=== PATIENT | female | born 1970 | race Caucasian/White ===

== ENCOUNTER → 2016-02-27 | Outpatient (CLI) | payer BC ==
[~2016-02-27] MED LIST: ESCI1TAB9 PO; IBUP-1050 PO; LEVO125T8 PO
[2016-02-27 12:49] LABS: THYROID STIMULATING HORMONE 3.16 uIu/ml (0.300-4.500)
== END | disposition home or self-care (01) ==
LOC: C.LABBFT 08:46
PROVIDERS: ATTEND Internal Medicine
DX: E03.9 Hypothyroidism, unspecified (principal)

== ENCOUNTER → 2016-07-22 | Outpatient (CLI) | payer BC, OTHER ==
--- NOTE | 2016-07-23 13:14 | MAMMOGRAPHY REPORT ---
BILATERAL DIGITAL SCREENING MAMMOGRAM WITH CAD: 07/22/2016 CLINICAL HISTORY: Routine screening. Patient has no complaints. TECHNIQUE: Bilateral CC and MLO views of the breasts with and without implant displacement views were obtained. Current study was also evaluated with a Computer Aided Detection (CAD) system. COMPARISON: Comparison is made to exams dated: 12/20/2014 mammogram, 12/20/2014 ultrasound, 04/04/2014 ultrasound, 04/04/2014 mammogram, 03/24/2014 mammogram, and 01/19/2013 mammogram - [facility]. BREAST COMPOSITION: The tissue of both breasts is heterogeneously dense, which may obscure small mas ses. FINDINGS: Bilateral subpectoral saline implants are intact. A dominant circumscribed oval 2.7 cm mas s in the left upper outer quadrant is increased in size compared to the March 2014 mammograms, how ever, it was previously documented to represent a simple cyst on ultrasound. No new suspicious mass, architectural distortion or cluster of microcalcifications is seen bilaterally. IMPRESSION: ACR BI-RADS CATEGORY 1: NEGATIVE There is no mammographic evidence of malignancy. A 1 year screening mammogram is recommended. The pa tient will receive written notification of the results. Approximately 10% of breast cancers are not detected with mammography. A negative mammographic report should not delay biopsy if a clinically suggestive mass is present. Mehnaz Sibley M.D. ay/:07/22/2016 16:19:23 Sap Hana Architect: Liana JOHNSON)(Mandie), [facility] letter sent: Normal 1/2 BI-RADS Code: ACR BI-RADS Category 1: Negative
== END | disposition home or self-care (01) ==
LOC: C.MAMM 15:40
PROVIDERS: ATTEND Internal Medicine
DX: Z12.31 Encounter for screening mammogram for malignant neoplasm of breast (principal)

== ENCOUNTER → 2016-12-31 | Outpatient (CLI) | payer BC, OTHER ==
--- NOTE | 2016-12-31 15:21 | MAMMOGRAPHY REPORT ---
UNILATERAL LEFT DIGITAL DIAGNOSTIC MAMMOGRAM TOMOSYNTHESIS WITH CAD AND TARGETED LEFT ULTRASOUND: CLINICAL HISTORY: The patient reports a new palpable left breast lump. She only reports associated t enderness when the area is palpated. TECHNIQUE: Breast tomosynthesis in addition to standard 2D mammography was performed. Current study was also evaluated with a Computer Aided Detection (CAD) system. Left CC and MLO 2-D and tomosynthes is images were obtained. Tomosynthesis images were obtained of the implant displaced views only. COMPARISON: Comparison is made to exams dated: 07/22/2016 mammogram, 12/20/2014 mammogram, 12/20/2014 ul trasound, 04/04/2014 ultrasound, 04/04/2014 mammogram, and 03/24/2014 mammogram - [facility]. BREAST COMPOSITION: The tissue of the left breast is heterogeneously dense, which may obscure small masses. FINDINGS: A triangle marker conn the site of the palpable lump in the left upper outer quadrant. At the site of the palpable lump there is a circumscribed 3.0 cm mass, which does not appear significan tly changed compared to the July 2016 exam although has increased compared to the 2014 exam. The rem ainder of the left breast demonstrates no suspicious masses, calcifications, or areas of architectura l distortion. A subpectoral saline implant is intact. Targeted ultrasound was performed of the area of the palpable lump pointed out by the patient, in the left breast at 1:00 approximately 6 cm from the nipple. At the site of the palpable lump there is a n oval circumscribed anechoic 2.4 x 1.8 x 2.8 cm mass. This corresponds with the mammographic mass a nd is consistent with a benign simple cyst. IMPRESSION: ACR BI-RADS CATEGORY 2: BENIGN, TARGETED ULTRASOUND ACR BI-RADS CATEGORY 2: BENIGN The palpable left 1:00 breast lump corresponds with a benign 2.8 cm simple cyst. There is no mammogra phic or targeted sonographic evidence of malignancy. Recommend clinical follow-up, and recommend rou polly bilateral screening mammograms which are due July 2017. The patient has been verbally notified of the results. Approximately 10% of breast cancers are not detected with mammography. A negative mammographic report should not delay biopsy if a clinically suggestive mass is present. Carmen guardado/:12/31/2016 13:17:06 Oyster Floater: Liana JOHNSON)(M), [facility] letter sent: Normal 1/2 BI-RADS Code: ACR BI-RADS Category 2: Benign Ultrasound BI-RADS: ACR BI-RADS Category 2: Benign
== END | disposition home or self-care (01) ==
LOC: C.MAMM 12:37
PROVIDERS: ATTEND Physician Assistant
DX: N63.0 Unspecified lump in unspecified breast (principal); Z98.82 Breast implant status

== ENCOUNTER 2017-03-30 21:37 | Observation (INO) | payer BC, OTHER ==
[~2017-03-30] VITALS: Ht 175.3 cm; Wt 86.3 kg
[2017-03-30] MEDS ORDERED: ONDANSETRON INJ 2 MG/ML 2 ML VIAL IV STA (21:57)
[2017-03-30] MEDS ORDERED: HYDROmorphone INJ 1 MG/ML SYR IV STA (21:57)
[2017-03-30] MEDS ORDERED: KETOROLAC TROMETHAMINE 30 MG/ML VIAL IV STA (21:57)
[2017-03-30] MEDS ORDERED: SODIUM CHLORIDE 0.9% 1000ML 1,000 ML IV STA (21:58)
--- NOTE | 2017-03-30 22:01 | EMERGENCY ROOM VISIT NOTE ---
History Report prepared by Rohit: Bao Mcneal Under the Supervision of: Dr. Zaire Menon M.D. First contact with patient: 21:47 Chief Complaint: ABDOMINAL PAIN Stated Complaint: EXTREMEM ABDOMINAL PAIN History of Present Illness The patient is a 46 year old female who presents to the Emergency Room with complaints of persistent right-sided abdominal pain that started prior to arrival this evening. She says that she was just sitting down watching TV when the pain came on. She describes the pain as sharp, and goes from her right side across to her belly button. She adds that she has been vomiting tonight. The patient denies any back pain. She says that she still has her gallbladder. The patient denies any chance of . Source of History: patient Onset: [employer] this evening Position: abdomen (right) Quality: sharp Timing: other (persistent) Associated Symptoms: + vomiting, No back pain Review of Systems See HPI for pertinent positives & negatives. A total of 10 systems reviewed and were otherwise negative. Past Medical & Surgical Medical Problems: (1) No chronic problems Family History No pertinent family history Social History Smoking Status: Never Smoker Alcohol Use: none Drug Use: none Marital Status: Housing Status: lives with family Occupation Status: employed Current/Historical Medications Scheduled Biotin (Biotin), 1 CAN PO DAILY Cholecalciferol (Vitamin D3), 1 TAB PO DAILY Escitalopram Oxalate (Escitalopram Oxalate), 30 MG PO DAILY Fish Oil (Fowler-3), 1 CAP PO DAILY Levothyroxine Sodium (Synthroid), 25 MCG PO DAILY Levothyroxine Sodium (Synthroid), 200 MCG PO DAILY Multivitamin (Multivitamin), 1 TAB PO DAILY Allergies Coded Allergies: No Known Allergies (Verified , 03/30/17) Physical Exam Vital Signs Date Time Temp Pulse Resp B/P (MAP) Pulse Ox O2 Delivery O2 Flow Rate FiO2 03/30/17 23:47 81 16 105/67 93 Room Air 03/30/17 22:41 77 03/30/17 22:34 80 16 125/63 93 Room Air 03/30/17 22:05 120/58 03/30/17 21:40 36.6 106 18 93/33 96 Room Air Physical Exam GENERAL: Patient is a well-nourished 46 year old female. HEAD: Normocephalic atraumatic EYES: Ocular movements intact pupils equal and react to light OROPHARYNX mucous membranes are moist no exudates present no erythema or edema present NECK: Supple no nuchal rigidity CHEST: Good equal expansion LUNGS: Clear and equal to auscultation CARDIAC: Normal S1 and S2 ABDOMEN: Soft, acutely tender in the right lower quadrant, no guarding BACK: No CVA tenderness EXTREMITIES: No pain upon palpation normal muscle strength in all groups no clubbing cyanosis or edema NEURO: Patient is following commands and answering questions appropriately. Alert and oriented x3 Cranial Nerves 2-12 grossly intact Medical Decision & Procedures ER Provider Diagnostic Interpretation: CT results as stated below per my review and radiologist interpretation: ABD/PELVIS WITHOUT FOR STONE HISTORY: 46 years-old Female Pt c/o Rt sided flank pain acute right-sided flank pain with concern for kidney stone. COMPARISON: None available TECHNIQUE: Multiple axial CT images of the abdomen and pelvis were obtained without contrast. A dose lowering technique was used consistent with the principals of JAMES. FINDINGS: Lung bases are clear. No pneumatosis or pneumoperitoneum identified. Imaged inferior cardiac chambers are unremarkable. Evaluation of the solid abdominal organs is limited without the use of contrast. 4 mm low attenuating lesion of the hepatic dome is too small to characterize however statistically would favor a benign etiology such as a hepatic cyst. No intrahepatic biliary ductal dilation. The spleen, pancreas, gallbladder and adrenal glands are within normal limits. Punctate bilateral nonobstructing renal calculi are noted. The ureters and urinary bladder are within normal limits. Uterus and left adnexum are unremarkable. Ovoid circumscribed cystic structure of the right adnexum, 2.2 cm suggests dominant follicle. Mild to moderate free pelvic fluid of the cul-de-sac. Aorta is normal in course and caliber. No bulky adenopathy identified. Small sliding-type hiatal hernia. No bowel obstruction. Mild colonic diverticulosis without CT evidence of acute diverticulitis. Appendix is mildly dilated at 8 mm demonstrates mild surrounding inflammatory stranding which tracks along the right pericolic gutter. Additionally, there is a punctate focus of increased attenuation in the mid appendiceal lumen, image 265 series 3 which may reflect a small appendicolith. It is no evidence of perforation or abscess at this time. Probable reactive ileus of the terminal ileum. Soft tissues are unremarkable. Bones appear intact. IMPRESSION: 1. Acute uncomplicated appendicitis without evidence of perforation or abscess. 2. No bowel obstruction. 3. Bilateral nonobstructing nephrolithiasis. 4. Mild to moderate free pelvic fluid is likely reactive. 5. 2.2 cm cystic lesion of the right adnexum suggests dominant ovarian follicle. The above report was generated using voice recognition software. It may contain grammatical, syntax or spelling errors. Electronically signed by: Miguel Eisenberg M.D. 03/30/2017 10:39 PM Dictated Date/Time: 03/30/2017 10:28 PM Laboratory Results 03/30/17 21:50 Red Blood Count 4.50, Mean Corpuscular Volume 89.8, Mean Corpuscular Hemoglobin 31.8, Mean Corpuscular Hemoglobin Concent 35.4, Mean Platelet Volume 9.2, Neutrophils (%) (Auto) 65.3, Lymphocytes (%) (Auto) 26.7, Monocytes (%) (Auto) 6.3, Eosinophils (%) (Auto) 1.0, Basophils (%) (Auto) 0.4, Neutrophils # (Auto) 8.74, Lymphocytes # (Auto) 3.58, Monocytes # (Auto) 0.85, Eosinophils # (Auto) 0.14, Basophils # (Auto) 0.05 03/30/17 21:50 Test 03/30/17 21:50 03/30/17 23:58 White Blood Count 13.40 K/uL (4.8-10.8) Red Blood Count 4.50 M/uL (4.2-5.4) Hemoglobin 14.3 g/dL (12.0-16.0) Hematocrit 40.4 % (37-47) Mean Corpuscular Volume 89.8 fL (80-100) Mean Corpuscular Hemoglobin 31.8 pg (25-34) Mean Corpuscular Hemoglobin Concent 35.4 g/dl (32-36) Platelet Count 234 K/uL (130-400) Mean Platelet Volume 9.2 fL (7.4-10.4) Neutrophils (%) (Auto) 65.3 % Lymphocytes (%) (Auto) 26.7 % Monocytes (%) (Auto) 6.3 % Eosinophils (%) (Auto) 1.0 % Basophils (%) (Auto) 0.4 % Neutrophils # (Auto) 8.74 K/uL (1.4-6.5) Lymphocytes # (Auto) 3.58 K/uL (1.2-3.4) Monocytes # (Auto) 0.85 K/uL (0.11-0.59) Eosinophils # (Auto) 0.14 K/uL (0-0.5) Basophils # (Auto) 0.05 K/uL (0-0.2) RDW Standard Deviation 40.9 fL (36.4-46.3) RDW Coefficient of Variation 12.6 % (11.5-14.5) Immature Granulocyte % (Auto) 0.3 % Immature Granulocyte # (Auto) 0.04 K/uL (0.00-0.02) Anion Gap 9.0 mmol/L (3-11) Estimated GFR () 98.1 Estimated GFR (Non- 84.6 BUN/Creatinine Ratio 15.2 (10-20) Calcium Level 9.4 mg/dl (8.5-10.1) Total Bilirubin 0.2 mg/dl (0.2-1) Direct Bilirubin < 0.1 mg/dl (0-0.2) Aspartate Amino Transf (AST/SGOT) 11 U/L (15-37) Alanine Aminotransferase (ALT/SGPT) 18 U/L (12-78) Alkaline Phosphatase 69 U/L (45-117) Total Protein 7.5 gm/dl (6.4-8.2) Albumin 3.7 gm/dl (3.4-5.0) Lipase 211 U/L (73-393) Urine Test NEG (NEG) Labs reviewed by ED physician. Medications Administered Medications (Trade) Dose Ordered Sig/Josephine Route Start Time Stop Time Status Last Admin Dose Admin Hydromorphone HCl (Dilaudid Inj) 1 mg NOW STAT IV 03/30/17 21:57 03/30/17 21:58 DC 03/30/17 22:04 1 MG Ondansetron HCl (Zofran Inj) 4 mg NOW STAT IV 03/30/17 21:57 03/30/17 21:58 DC 03/30/17 22:03 4 MG Ketorolac Tromethamine (Toradol Inj) 30 mg NOW STAT IV 03/30/17 21:57 03/30/17 21:58 DC 03/30/17 22:05 30 MG Sodium Chloride 1,000 ml @ 999 mls/hr Q1H1M STAT IV 03/30/17 21:58 03/30/17 22:58 DC 03/30/17 22:03 999 MLS/HR Cefoxitin Sodium (Mefoxin 2000mg/ 60 ml D5W) 2,000 mg NOW STAT IV 03/30/17 22:46 03/30/17 22:48 DC 03/30/17 23:22 2,000 MG ED Course 2152: Past medical records reviewed. The patient was evaluated in room C12A. A complete history and physical examination was performed. 2156: Ordered Toradol Inj 30 mg IV, Zofran Inj 4 mg IV, Dilaudid Inj 1 mg IV. 2157: Ordered NSS 1000 ml @ 999 mls/hr IV. 2246: Upon reexamination the patient is resting. I discussed results and treatment plan with the patient. She verbalizes agreement and understanding. The patient will be evaluated for further management by surgery. 2245: Ordered Mefoxin 2000 mg/60 ml D5W 2000 mg IV. 2248: I discussed the patient with Dr. Cristhian CRAVEN general surgery - he will evaluate the patient for further treatment. Medical Decision Differential diagnosis: Etiologies such as appendicitis, diverticulitis, PUD, biliary pathology, UTI, pancreatitis, obstruction, mesenteric ischemia, aortic pathology, infections, inflammatory bowel disease, renal colic, as well as others were entertained. This is a 38-year-old female who presents emergency department writhing around on the bed. Due to the nature the patient's pain she was immediately sent for CAT scan after an IV was obtained. The patient's CAT scan was concerning for acute appendicitis. She also has an elevation in her white blood count cell count. Patient was given Dilaudid as well as Toradol for the pain. She will be started on Mefoxin. I did discuss the case with the surgeon on-call. Patient family were in agreement with the treatment plan. Medication Reconcilliation Current Medication List: was personally reviewed by me Blood Pressure Screening Patient's blood pressure: Normal blood pressure Consults Time Called: 2246 Consulting Physician: Dr. Crishtian CRAVEN general surgery Returned Call: [phone] I discussed the patient with Dr. Cristhian CRAVEN general surgery - he will evaluate the patient for further treatment. Impression Primary Impression: Appendicitis, acute Scribe Attestation The scribe's documentation has been prepared under my direction and personally reviewed by me in its entirety. I confirm that the note above accurately reflects all work, treatment, procedures, and medical decision making performed by me. Departure Information Dispostion Being Evaluated By Surgeon Referrals Pacheco Sullivan M.D. (PCP) Patient Instructions My [facility] Problem Qualifiers Primary Impression: Appendicitis, acute Acute appendicitis type: with generalized peritonitis Qualified Codes: K35.2 - Acute appendicitis with generalized peritonitis
[2017-03-30 22:07] LABS: BASO % 0.4 %; BASO ABS # 0.05 K/uL (0-0.2); EOS ABS # 0.14 K/uL (0-0.5); HEMATOCRIT 40.4 % (37-47); HEMOGLOBIN 14.3 g/dL (12.0-16.0); IG# 0.04 K/uL (0.00-0.02); LYMPH % 26.7 %; LYMPH ABS # 3.58 K/uL (1.2-3.4); MEAN CELL VOLUME 89.8 fL (80-100); MEAN CORPUSCULAR HEMOGLOBIN 31.8 pg (25-34); MEAN CORPUSCULAR HGB CONC 35.4 g/dl (32-36); MEAN PLATELET VOLUME 9.2 fL (7.4-10.4); MONO % 6.3 %; MONO ABS # 0.85 K/uL (0.11-0.59); NEUT % 65.3 %; NEUT ABS # 8.74 K/uL (1.4-6.5); PLATELET COUNT 234 K/uL (130-400); RED CELL DISTRIBUTION WIDTH CV 12.6 % (11.5-14.5); RED CELL DISTRIBUTION WIDTH SD 40.9 fL (36.4-46.3)
[2017-03-30 22:23] LABS: ALBUMIN 3.7 gm/dl (3.4-5.0); ALT/SGPT 18 U/L (12-78); BLOOD UREA NITROGEN 12 mg/dl (7-18); CALCIUM 9.4 mg/dl (8.5-10.1); CARBON DIOXIDE 28 mmol/L (21-32); CREATININE 0.82 mg/dl (0.60-1.20); GLUCOSE 91 mg/dl (70-99); LIPASE 211 U/L (73-393); POTASSIUM 3.5 mmol/L (3.5-5.1); SODIUM 138 mmol/L (136-145)
[2017-03-30 22:26] LABS: ALKALINE PHOSPHATASE 69 U/L (45-117); AST/SGOT 11 U/L (15-37); TOTAL PROTEIN 7.5 gm/dl (6.4-8.2)
--- NOTE | 2017-03-30 22:41 | DIAGNOSTIC IMAGING REPORT ---
ABD/PELVIS WITHOUT FOR STONE HISTORY: 46 years-old Female Pt c/o Rt sided flank pain acute right-sided flank pain with concern for kidney stone. COMPARISON: None available TECHNIQUE: Multiple axial CT images of the abdomen and pelvis were obtained without contrast. A dose lowering technique was used consistent with the principals of JAMES. FINDINGS: Lung bases are clear. No pneumatosis or pneumoperitoneum identified. Imaged inferior cardiac chambers are unremarkable. Evaluation of the solid abdominal organs is limited without the use of contrast. 4 mm low attenuating lesion of the hepatic dome is too small to characterize however statistically would favor a benign etiology such as a hepatic cyst. No intrahepatic biliary ductal dilation. The spleen, pancreas, gallbladder and adrenal glands are within normal limits. Punctate bilateral nonobstructing renal calculi are noted. The ureters and urinary bladder are within normal limits. Uterus and left adnexum are unremarkable. Ovoid circumscribed cystic structure of the right adnexum, 2.2 cm suggests dominant follicle. Mild to moderate free pelvic fluid of the cul-de-sac. Aorta is normal in course and caliber. No bulky adenopathy identified. Small sliding-type hiatal hernia. No bowel obstruction. Mild colonic diverticulosis without CT evidence of acute diverticulitis. Appendix is mildly dilated at 8 mm demonstrates mild surrounding inflammatory stranding which tracks along the right pericolic gutter. Additionally, there is a punctate focus of increased attenuation in the mid appendiceal lumen, image 265 series 3 which may reflect a small appendicolith. It is no evidence of perforation or abscess at this time. Probable reactive ileus of the terminal ileum. Soft tissues are unremarkable. Bones appear intact. IMPRESSION: 1. Acute uncomplicated appendicitis without evidence of perforation or abscess. 2. No bowel obstruction. 3. Bilateral nonobstructing nephrolithiasis. 4. Mild to moderate free pelvic fluid is likely reactive. 5. 2.2 cm cystic lesion of the right adnexum suggests dominant ovarian follicle. The above report was generated using voice recognition software. It may contain grammatical, syntax or spelling errors. Electronically signed by: Miguel Eisenberg M.D. 03/30/2017 10:39 PM Dictated Date/Time: 03/30/2017 10:28 PM
[2017-03-30] MEDS ORDERED: CEFOXITIN 2000MG/60 ML D5W IV STA (22:46)
[2017-03-30] MEDS ORDERED: LXP/20 PO (23:06)
[2017-03-30] MEDS ORDERED: SYN200 PO (23:06)
[2017-03-30] MEDS ORDERED: LEVO25TA PO (23:06)
[2017-03-30] MEDS ORDERED: MULT-506 PO (23:07)
[2017-03-30] MEDS ORDERED: OMEG10007 PO (23:07)
[2017-03-30] MEDS ORDERED: BIOT1CAP8 PO (23:07)
[2017-03-30] MEDS ORDERED: CHOL1000 PO (23:07)
--- NOTE | 2017-03-30 23:35 | Surgery Consultation ---
Consultation Date of Consultation: Mar 30, 2017. Attending Physician: History of Present Illness The patient is a 46 year old female who presents to the Emergency Room with complaints of persistent right-sided abdominal pain that started prior to arrival this evening. She says that she was just sitting down watching TV when the pain came on. She describes the pain as sharp, and goes from her right side across to her belly button. She adds that she has been vomiting tonight. The patient denies any back pain. She says that she still has her gallbladder. The patient denies any chance of . I saw pt at ER, I reviewed pt's H/P with pt, pt is still have RLQ pain, with nausea and vomiting, pt denies fever, no diarrhea. Past Medical/Surgical History Medical Problems: (1) Appendicitis, acute Status: Acute Family History No pertinent family history Social History Smoking Status: Never Smoker Smokeless Tobacco Use: No Alcohol Use: occasionally Drug Use: none Marital Status: Housing Status: lives with family Occupation Status: employed Allergies Coded Allergies: No Known Allergies (Verified , 03/30/17) Home Medications Scheduled Biotin (Biotin), 1 CAN PO DAILY Cholecalciferol (Vitamin D3), 1 TAB PO DAILY Escitalopram Oxalate (Escitalopram Oxalate), 30 MG PO DAILY Fish Oil (Lynn-3), 1 CAP PO DAILY Levothyroxine Sodium (Synthroid), 25 MCG PO DAILY Levothyroxine Sodium (Synthroid), 200 MCG PO DAILY Multivitamin (Multivitamin), 1 TAB PO DAILY Review of Systems Constitutional: No fever, No chills, No sweats, No weight loss, No weakness, No fatigue, No problem reported Eyes: No worsening of vision, No eye pain, No redness, No discharge, No diplopia, No problem reported ENT: No hearing loss, No unusual epistaxis, No nasal symptoms, No sore throat, No tinnitus, No dental problems, No trouble swallowing, No problem reported Respiratory: No cough, No sputum, No wheezing, No shortness of breath, No dyspnea on exertion, No dyspnea at rest, No hemoptysis, No problem reported Cardiovascular: No chest pain, No orthopnea, No PND, No edema, No claudication , No palpitations, No problem reported Abdomen: + pain, + nausea, + vomiting Musculoskeletal: No joint pain, No muscle pain, No swelling, No calf pain, No problem reported Genitourinary - Female: No dysuria, No urinary frequency, No urinary urgency, No urinary incontinence, No urinary retention, No hematuria, No dysmenorrhea, No menorrhagia, No metrorrhagia, No rash, No vaginal bleeding, No vaginal discharge, No vaginal itching, No vulvodynia, No , No problem reported Neurologic: No memory loss, No paralysis, No weakness, No numbness/tingling, No vertigo, No balance problems, No problem reported Psychiatric: No depression symptoms, No anhedonism, No anxiety, No insomnia, No substance abuse, No problem reported Endocrine: No fatigue, No excessive thirst, No excessive urination, No problem reported Hematologic / Lymphatic: No abnormal bleeding/bruising, No clotting problems, No swollen lymph nodes, No night sweats, No problem reported Physical Exam Date Time Temp Pulse Resp B/P (MAP) Pulse Ox O2 Delivery O2 Flow Rate FiO2 03/30/17 22:41 77 03/30/17 22:34 80 16 125/63 93 Room Air 03/30/17 22:05 120/58 03/30/17 21:40 36.6 106 18 93/33 96 Room Air General Appearance: WD/WN, + mild distress Head: normocephalic Eyes: normal inspection ENT: normal ENT inspection Neck: supple, no JVD Respiratory/Chest: chest non-tender, lungs clear, normal breath sounds Cardiovascular: regular rate, rhythm, no edema, no gallop, no JVD, no murmur Abdomen/GI: normal bowel sounds, soft, no organomegaly, no pulsatile mass, normal rectal exam, + tenderness (at RLQ, no rebound pain) Extremities/Musculoskelatal: normal inspection, no calf tenderness, normal capillary refill Neurologic/Psych: no motor/sensory deficits, alert, normal mood/affect Skin: normal color, warm/dry, no rash Lymphatic: no adenopathy Laboratory Results Last 24 Hours Test 03/30/17 21:50 White Blood Count 13.40 K/uL Red Blood Count 4.50 M/uL Hemoglobin 14.3 g/dL Hematocrit 40.4 % Mean Corpuscular Volume 89.8 fL Mean Corpuscular Hemoglobin 31.8 pg Mean Corpuscular Hemoglobin Concent 35.4 g/dl Platelet Count 234 K/uL Mean Platelet Volume 9.2 fL Neutrophils (%) (Auto) 65.3 % Lymphocytes (%) (Auto) 26.7 % Monocytes (%) (Auto) 6.3 % Eosinophils (%) (Auto) 1.0 % Basophils (%) (Auto) 0.4 % Neutrophils # (Auto) 8.74 K/uL Lymphocytes # (Auto) 3.58 K/uL Monocytes # (Auto) 0.85 K/uL Eosinophils # (Auto) 0.14 K/uL Basophils # (Auto) 0.05 K/uL RDW Standard Deviation 40.9 fL RDW Coefficient of Variation 12.6 % Immature Granulocyte % (Auto) 0.3 % Immature Granulocyte # (Auto) 0.04 K/uL Sodium Level 138 mmol/L Potassium Level 3.5 mmol/L Chloride Level 101 mmol/L Carbon Dioxide Level 28 mmol/L Anion Gap 9.0 mmol/L Blood Urea Nitrogen 12 mg/dl Creatinine 0.82 mg/dl Estimated GFR () 98.1 Estimated GFR (Non- 84.6 BUN/Creatinine Ratio 15.2 Random Glucose 91 mg/dl Calcium Level 9.4 mg/dl Total Bilirubin 0.2 mg/dl Direct Bilirubin < 0.1 mg/dl Aspartate Amino Transf (AST/SGOT) 11 U/L Alanine Aminotransferase (ALT/SGPT) 18 U/L Alkaline Phosphatase 69 U/L Total Protein 7.5 gm/dl Albumin 3.7 gm/dl Lipase 211 U/L Assessment & Plan CT scan-FINDINGS: Lung bases are clear. No pneumatosis or pneumoperitoneum identified. Imaged inferior cardiac chambers are unremarkable. Evaluation of the solid abdominal organs is limited without the use of contrast. 4 mm low attenuating lesion of the hepatic dome is too small to characterize however statistically would favor a benign etiology such as a hepatic cyst. No intrahepatic biliary ductal dilation. The spleen, pancreas, gallbladder and adrenal glands are within normal limits. Punctate bilateral nonobstructing renal calculi are noted. The ureters and urinary bladder are within normal limits. Uterus and left adnexum are unremarkable. Ovoid circumscribed cystic structure of the right adnexum, 2.2 cm suggests dominant follicle. Mild to moderate free pelvic fluid of the cul-de-sac. Aorta is normal in course and caliber. No bulky adenopathy identified. Small sliding-type hiatal hernia. No bowel obstruction. Mild colonic diverticulosis without CT evidence of acute diverticulitis. Appendix is mildly dilated at 8 mm demonstrates mild surrounding inflammatory stranding which tracks along the right pericolic gutter. Additionally, there is a punctate focus of increased attenuation in the mid appendiceal lumen, image 265 series 3 which may reflect a small appendicolith. It is no evidence of perforation or abscess at this time. Probable reactive ileus of the terminal ileum. Soft tissues are unremarkable. Bones appear intact. IMPRESSION: 1. Acute uncomplicated appendicitis without evidence of perforation or abscess. 2. No bowel obstruction. 3. Bilateral nonobstructing nephrolithiasis. 4. Mild to moderate free pelvic fluid is likely reactive. 5. 2.2 cm cystic lesion of the right adnexum suggests dominant ovarian follicle. Assessment: pt is a 46 year old female who presents to ER with RLQ pain and nausea and vomiting, CT scan- acute appendicitis, IMP: acute appendicitis Plan, I recommend to do laparoscopic appendectomy, possible open, D/W benefits, risks and alternatives of the procedure, the risks - infection, bleeding, injury bowel, abscess, pt understood, she agrees with the plan, i answered all questions,
[2017-03-31] VITALS (7 sets, daily range): BP systolic 108–120; BP diastolic 66–73; PULSE 74–81; TEMP 36.4–36.9; O2SAT 93–95; Ht 175.3 cm; Wt 86.3 kg
[2017-03-31] MEDS ORDERED: BACITRACIN OINT 15 GM TUBE ONE (00:14)
[2017-03-31] MEDS ORDERED: LIDOCAINE HCL 1% 20 ML VIAL ONE (00:14)
[2017-03-31] MEDS ORDERED: BUPIVACAINE 0.5 % 5 MG/1 ML MPF 30ML VIAL ONE (00:14)
[2017-03-31] MEDS ORDERED: MEPERIDINE HCL 25 MG/ML CARP IV PRN (00:15)
[2017-03-31] MEDS ORDERED: PHENYLEPHRINE 100MCG/ML 5ML SYR IV PRN (00:15)
[2017-03-31] MEDS ORDERED: LABETALOL HCL IV 5 MG/ML 20ML IV PRN (00:15)
[2017-03-31] MEDS ORDERED: HYDROmorphone INJ 2 MG/ML SYR/VIAL IV PRN (00:15)
[2017-03-31] MEDS ORDERED: NALOXONE HCL 0.4 MG/1 ML VIAL/CARP IV PRN (00:15)
[2017-03-31] MEDS ORDERED: FLUMAZENIL 0.1 MG/1 ML 10 ML VIAL IV PRN (00:15)
[2017-03-31] MEDS ORDERED: ONDANSETRON INJ 2 MG/ML 2 ML VIAL IV PRN ×2 (00:15→02:15)
[2017-03-31] MEDS ORDERED: EpHEDrine SULFATE INJ 50 MG/ML AMP IV PRN (00:15)
[2017-03-31] MEDS ORDERED: ATROPINE SULFATE 0.1 MG/ML 5ML SYR IV PRN (00:15)
[2017-03-31] MEDS ORDERED: FENTANYL CITRATE INJ 50 MCG/1 ML 2 ML VIAL IV PRN (00:15)
[2017-03-31] MEDS ORDERED: MIDAZOLAM HCL 1 MG/ML 2ML VIAL ONE (00:23)
[2017-03-31] MEDS ORDERED: FENTANYL CITRATE INJ 50 MCG/1 ML 2 ML VIAL ONE ×2 (00:23→01:11)
[2017-03-31] MEDS ORDERED: PROPOFOL IV EMULSION 10 MG/ML 20 ML VIAL IV ONE (00:26)
[2017-03-31] MEDS ORDERED: LIDOCAINE HCL 2% 2 ML VIAL (20MG/ML) ONE (00:26)
[2017-03-31] MEDS ORDERED: DEXAMETHASONE SOD INJ 4 MG/ML VIAL ONE (00:27)
[2017-03-31] MEDS ORDERED: ONDANSETRON INJ 2 MG/ML 2 ML VIAL ONE (00:27)
[2017-03-31] MEDS ORDERED: SUCCINYLCHOLINE CHLORIDE 20 MG/ML 10 ML VIAL IV ONE (00:59)
[2017-03-31] MEDS ORDERED: EpHEDrine SULFATE INJ 50 MG/ML AMP ONE (01:01)
--- NOTE | 2017-03-31 01:01 | History & Physical Bridge Note ---
H&P Re-Evaluation Bridge Note: I have examined the patient, reviewed the History & Physical and in the interval since the performance of the History & Physical I have noted the following changes of clinical significance: No changes noted
[2017-03-31] MEDS ORDERED: NEOSTIGMINE METHYLSULFATE 5 MG/5 ML SYR ONE (01:08)
[2017-03-31] MEDS ORDERED: GLYCOPYRROLATE INJ 0.2 MG/ML VIAL ONE (01:08)
[2017-03-31] MEDS ORDERED: ROCURONIUM BROMIDE 10 MG/ML 5 ML VIAL IV ONE (01:34)
--- NOTE | 2017-03-31 01:52 | [facility] Post Operative Brief Note ---
Immediate Operative Summary Operative Date Mar 31, 2017. Pre-Operative Diagnosis Acute Appendicitis Post-Operative Diagnosis Acute Appendicitis Procedure(s) Performed Laparoscopic Appendectomy Surgeon Dr Morrow Process Development Chemist Surgeon(s) surgical technologist Estimated Blood Loss 5ml Findings Consistent with Post-Op Diagnosis acute appendicitis Fluids (cc crystalloids) 1000ml Specimens As Per Surgeon A. Appendix Drains None Anesthesia Type General Complication(s) none Disposition Accompanied Pt To Recover: yes Disposition: Recovery Room / PACU
--- NOTE | 2017-03-31 02:05 | Anesthesiology Progress Note ---
Anesthesia Post Op Note Date & Time Mar 31, 2017 at 02:04 Vital Signs Pain Intensity: 1.0 Vital Signs Past 12 Hours Date Time Temp Pulse Resp B/P (MAP) Pulse Ox O2 Delivery O2 Flow Rate FiO2 03/30/17 23:47 81 16 105/67 93 Room Air 03/30/17 22:41 77 03/30/17 22:34 80 16 125/63 93 Room Air 03/30/17 22:05 120/58 03/30/17 21:40 36.6 106 18 93/33 96 Room Air Notes Mental Status: alert / awake / arousable, participated in evaluation Pt Amnestic to Procedure: Yes Nausea / Vomiting: adequately controlled Pain: adequately controlled Airway Patency, RR, SpO2: stable & adequate BP & HR: stable & adequate Hydration State: stable & adequate Anesthetic Complications: no major complications apparent The patient is awake and comfortable in recovery. All of her vitals are stable.
[2017-03-31] MEDS ORDERED: HYDROmorphone INJ 1 MG/ML SYR IV PRN (02:15)
[2017-03-31] MEDS ORDERED: OXYCODONE/ACETAMINOPHEN 5-325 TAB PO PRN (02:15)
[2017-03-31] MEDS ORDERED: LACTATED RINGER'S 1000ML 1,000 ML IV SCH (02:45)
[2017-03-31] MEDS ORDERED: IV FLUIDS COMPLETED PRN (03:15)
--- NOTE | 2017-03-31 04:03 | OPERATIVE REPORT ---
DATE OF OPERATION: 03/31/2017 PREOPERATIVE DIAGNOSIS: Acute appendicitis. POSTOPERATIVE DIAGNOSIS: Same. PROCEDURE: Laparoscopic appendectomy. SURGEON: Peterson Morrow MD. ANESTHESIA: General. ESTIMATED BLOOD LOSS: About 10 mL. FINDINGS: Acute appendicitis. COMPLICATIONS: None. INDICATIONS FOR THE PROCEDURE: This is a 46-year-old female who presented to the ED with right lower quadrant pain. The patient had CT scan confirmed patient had acute appendicitis. The patient will be required to do laparoscopic appendectomy, possible open. I did talk to the patient about the benefit and risk, alternate procedure. I indicated the risks may include but not limited such as bleeding, infection, abscess, injury to bowel. The patient understands. She signed informed consent and I answered all questions. DETAILS OF PROCEDURE: We brought the patient to the OR, put the patient in the supine position. The patient received SCD on bilateral legs to prevent DVT. Also, the patient received 2 gram cefoxitin IV for prophylactic antibiotic and the patient received Barahona catheter insertion. The patient received general anesthesia without difficulty. The abdomen was prepped and draped in routine sterile fashion. After a timeout, I injected local anesthesia by using 1% lidocaine mixed with 0.5% Marcaine just above the umbilicus. Then I made a small incision just above umbilicus, opened fascia and opened peritoneum under direct vision. I put a Aleah trocar in, connected to CO2 to create pneumoperitoneum. Flow rate is 6 liters per minute, pressure, not more than 14 mmHg. Once we got a nice pneumoperitoneum, we put the camera in, looked around the abdomen, showed normal findings of the stomach, small bowel, large bowel. There was some adhesion on the right side of the abdomen. Appendix showed inflammation and large, confirmed acute appendicitis. Then, we put two 5 mm trocar on the left lower quadrant area. First we took down the adhesions on right side of the abdomen wall using Harmonic, rechecked, no active bleeding, no injury to bowel. Then we mobilized the appendix using Harmonic to take down the appendiceal, rechecked no active bleeding. Then, we used a 45 mm Endo-KERRY staple to transect the appendix on the base of the appendix, rechecked no active bleeding, no leak. Then we removed the appendix through the catcher bag. Then we reinserted Aleah trocar in and connected to CO2 to create pneumoperitoneum again to look around the abdomen, no active bleeding, no leak from the staple line, no free fluid on the pelvic area. Then we removed all trocars under direct vision. No active bleeding from trocar sites. The pneumoperitoneum was released. Closed umbilical incision and fascial layer by using #1 Vicryl [id number] x2, closed subcutaneous layer by using 2-0 Vicryl continuous running, closed skin by using 4-0 Vicryl continuous running. Then we closed another two 5 mm trocar site skin only by using 4-0 Vicryl. Then we put the dressing on. The patient tolerated the procedure well. After the procedure, we did remove the [id number]. All instrument, needle and sponge count correct x2 at the end of the case. The specimen sent to pathology. The patient was extubated in the OR and transferred to recovery room in stable condition. After the procedure, I did talk to the patient's family member about OR finding and procedure we did, they understand. I attest to the content of the Intraoperative Record and any orders documented therein. Any exceptions are noted below. MALLORIE
[2017-03-31] MEDS: ACETAMINOPHEN 325 MG TAB PO PRN ×2 (04:44→10:40)
[2017-03-31] MEDS ORDERED: CEFTRIAXONE SOD INJ 2,000 MG in DEXTROSE 5% 50ML 50 ML IV SCH (06:00)
[2017-03-31 08:17] LABS: BASO % 0.1 %; BASO ABS # 0.01 K/uL (0-0.2); HEMATOCRIT 39.1 % (37-47); HEMOGLOBIN 13.4 g/dL (12.0-16.0); IG# 0.03 K/uL (0.00-0.02); LYMPH % 4.1 %; LYMPH ABS # 0.56 K/uL (1.2-3.4); MEAN CELL VOLUME 91.1 fL (80-100); MEAN CORPUSCULAR HEMOGLOBIN 31.2 pg (25-34); MEAN CORPUSCULAR HGB CONC 34.3 g/dl (32-36); MEAN PLATELET VOLUME 9.6 fL (7.4-10.4); MONO % 2.2 %; NEUT % 93.4 %; NEUT ABS # 12.67 K/uL (1.4-6.5); PLATELET COUNT 188 K/uL (130-400); RED CELL DISTRIBUTION WIDTH CV 12.5 % (11.5-14.5); RED CELL DISTRIBUTION WIDTH SD 41.7 fL (36.4-46.3); WHITE BLOOD COUNT 13.57 K/uL (4.8-10.8)
--- NOTE | 2017-03-31 09:37 | Discharge Instructions ---
Discharge Instructions Date of Service Mar 31, 2017. Admission Reason for Admission: Appendicitis,Acute Discharge Discharge Diagnosis / Problem: same Discharge Goals Goal(s): Decrease discomfort, Improve function Activity Recommendations Activity Limitations: per Instructions/Follow-up section No heavy lifting over 10 pounds for 2 weeks No strenuous activity until cleared by surgeon No submerging incisions underwater for 2 weeks (no bathing, swimming, or hot tubs) No driving while taking narcotic pain medication or until you are pain free . Instructions / Follow-Up Instructions / Follow-Up You may shower in 4 days. Sponge bath and wash hair in meantime. After 4 days, shower and then remove outer dressings. Replace daily or as needed to keep clean and dry. Leave steri strips on incisions for 7 days and then remove. They may fall off on their own that is okay. Walking and light activity is encouraged to prevent blood clots from forming in your legs You will be given narcotic pain medication (Percocet) as needed for moderate to severe pain. This medication may make you drowsy. You may take extra strength Tylenol/Ibuprofen as needed for mild pain. Follow-up in surgical office in 1-2 weeks, please call office at [phone] to make an appointment. Current Hospital Diet Patient's current hospital diet: Clear Liquid Diet Discharge Diet Recommended Diet: Regular Diet Procedures Procedures Performed: Laparoscopic Appendectomy Pending Studies Studies pending at discharge: yes List of pending studies: appendix pathology- will be reviewed at follow up visit Medical Emergencies . Who to Call and When: Medical Emergencies: If at any time you feel your situation is an emergency, please call 911 immediately. . Non-Emergent Contact Non-Emergency issues call your: Primary Care Provider, Surgeon Call Non-Emergent contact if: you have a fever, temperature is above 101, your pain is not controlled, your pain is worsening, your pain is unusual for you, wound has increased drainage, wound has increased redness, wound has increased pain . "Provider Documentation" section prepared by Maria Esther Gomez. . VTE Core Measure Inpt VTE Proph given/why not?: SCD's [place] Drug Monitoring Program Search Results: patient reviewed within database, no issues identified
[2017-03-31] MEDS ORDERED: ONDA4TAB10 SL (09:42)
[2017-03-31] MEDS ORDERED: OXYC-57 PO (09:42)
--- NOTE | 2017-03-31 09:59 | Surgery Progress Note ---
Surgery Progress Note Date of Service Mar 31, 2017. Subjective Post OP Day: POD # 0 s/p laparoscopic appendectomy + feeling well, + ambulating (to bathroom), + pain controlled (with Tylenol), + diet (clear liquids), No nausea, No vomiting Objective Vital Signs: Date Time Temp Pulse Resp B/P (MAP) Pulse Ox O2 Delivery O2 Flow Rate FiO2 03/31/17 08:41 36.7 79 18 118/70 (86) 93 03/31/17 05:40 36.9 77 14 108/66 (80) 95 Nasal Cannula 2.0 03/31/17 04:40 36.4 81 14 120/73 (89) 95 Nasal Cannula 2.0 03/31/17 03:35 36.8 74 16 113/68 (83) 94 Room Air 03/31/17 03:05 36.7 75 16 116/67 (83) 94 Nasal Cannula 2.0 03/31/17 02:40 94 Nasal Cannula 2.0 03/31/17 02:40 Nasal Cannula 2.0 03/31/17 02:40 36.7 78 18 119/70 94 Nasal Cannula 2.0 03/31/17 02:20 36.8 85 18 129/65 94 Room Air 03/31/17 02:10 81 16 128/64 98 Oxymask 7 03/31/17 02:00 36.1 80 16 125/62 97 Oxymask 10 03/30/17 23:47 81 16 105/67 93 Room Air 03/30/17 22:41 77 03/30/17 22:34 80 16 125/63 93 Room Air 03/30/17 22:05 120/58 03/30/17 21:40 36.6 106 18 93/33 96 Room Air General Appearance: WD/WN, no apparent distress Head: normocephalic, atraumatic Neck: trachea midline Respiratory/Chest: no respiratory distress, no accessory muscle use Abdomen: non distended, soft, no organomegaly, no pulsatile mass, + tenderness (at incision sites, appropriate post op) Incision(s): clean, dry (dressings clean and dry, incisions not inspected) Laboratory Results: Results Past 24 Hours Test 03/30/17 21:50 03/30/17 23:58 03/31/17 07:52 Range/Units White Blood Count 13.40 13.57 4.8-10.8 K/uL Red Blood Count 4.50 4.29 4.2-5.4 M/uL Hemoglobin 14.3 13.4 12.0-16.0 g/dL Hematocrit 40.4 39.1 37-47 % Mean Corpuscular Volume 89.8 91.1 80-100 fL Mean Corpuscular Hemoglobin 31.8 31.2 25-34 pg Mean Corpuscular Hemoglobin Concent 35.4 34.3 32-36 g/dl Platelet Count 234 188 130-400 K/uL Mean Platelet Volume 9.2 9.6 7.4-10.4 fL Neutrophils (%) (Auto) 65.3 93.4 % Lymphocytes (%) (Auto) 26.7 4.1 % Monocytes (%) (Auto) 6.3 2.2 % Eosinophils (%) (Auto) 1.0 0.0 % Basophils (%) (Auto) 0.4 0.1 % Neutrophils # (Auto) 8.74 12.67 1.4-6.5 K/uL Lymphocytes # (Auto) 3.58 0.56 1.2-3.4 K/uL Monocytes # (Auto) 0.85 0.30 0.11-0.59 K/uL Eosinophils # (Auto) 0.14 0.00 0-0.5 K/uL Basophils # (Auto) 0.05 0.01 0-0.2 K/uL RDW Standard Deviation 40.9 41.7 36.4-46.3 fL RDW Coefficient of Variation 12.6 12.5 11.5-14.5 % Immature Granulocyte % (Auto) 0.3 0.2 % Immature Granulocyte # (Auto) 0.04 0.03 0.00-0.02 K/uL Sodium Level 138 136-145 mmol/L Potassium Level 3.5 3.5-5.1 mmol/L Chloride Level 101 98-107 mmol/L Carbon Dioxide Level 28 21-32 mmol/L Anion Gap 9.0 3-11 mmol/L Blood Urea Nitrogen 12 7-18 mg/dl Creatinine 0.82 0.60-1.20 mg/dl Estimated GFR () 98.1 Estimated GFR (Non- 84.6 BUN/Creatinine Ratio 15.2 10-20 Random Glucose 91 70-99 mg/dl Calcium Level 9.4 8.5-10.1 mg/dl Total Bilirubin 0.2 0.2-1 mg/dl Direct Bilirubin < 0.1 0-0.2 mg/dl Aspartate Amino Transf (AST/SGOT) 11 15-37 U/L Alanine Aminotransferase (ALT/SGPT) 18 12-78 U/L Alkaline Phosphatase 69 45-117 U/L Total Protein 7.5 6.4-8.2 gm/dl Albumin 3.7 3.4-5.0 gm/dl Lipase 211 73-393 U/L Urine Color YELLOW Urine Appearance CLEAR CLEAR Urine pH 5.5 4.5-7.5 Urine Specific [place] 1.022 1.000-1.030 Urine Protein NEG NEG Urine Glucose (UA) NEG NEG Urine Ketones TRACE NEG Urine Occult Blood TRACE NEG Urine Nitrite NEG NEG Urine Bilirubin NEG NEG Urine Urobilinogen NEG NEG Urine Leukocyte Esterase NEG NEG Urine WBC (Auto) 1-5 0-5 /hpf Urine RBC (Auto) 5-10 0-4 /hpf Urine Hyaline Casts (Auto) 1-5 0-5 /lpf Urine Epithelial Cells (Auto) 10-20 0-5 /lpf Urine Bacteria (Auto) NEG NEG Urine Test NEG NEG Assessment & Plan POD # 0 s/p laparoscopic appendectomy -afebrile since surgery - leukocytosis of 13.5K - abdominal pain moderate but controlled - tolerated clear liquids Plan: May discharge home later today Continue current pain management Advance diet as tolerated Encourage ambulation Discharge instructions reviewed Rx for Percocet and Zofran prn pain and nausea respectively F/u [address] Morrow has seen and examined patient, agrees with above
--- NOTE | 2017-04-02 15:32 | Discharge Summary ---
Discharge Summary Dates Admission Date / Time: Mar 31, 2017 at 02:12 Discharge Date: Mar 31, 2017 Dispostion / Condition Discharge Disposition: Home Condition at Discharge: Good Principal Diagnosis (1) Acute appendicitis Problem List (1) Hypothyroidism Consultations / Procedures Consultations: None Procedures: Laparoscopic appendectomy Vaccinations: None Pending Studies / Follow-Up Appendix pathology. Will be reviewed at follow up visit. Medication Reconciliation New Medications: Ondasetron Odt (Zofran Odt) 4 Mg Tab 4 MG SL Q6H PRN for Nausea, #20 TAB Oxycodone/Acetaminophen 5MG/325MG (Percocet 5MG/325MG) Tab 1 TABLET PO Q4H PRN for Pain, #18 TAB Continued Medications: Biotin (Biotin) 1 Mg Cap 1 CAN PO DAILY Cholecalciferol (Vitamin D3) 1,000 Unit Tab 1 TAB PO DAILY, TAB 3 Refills Escitalopram Oxalate (Escitalopram Oxalate) 20 Mg Tab 30 MG PO DAILY 1 & 1/2 tablet dose Fish Oil (Berger-3) 1 Ea Cap 1 CAP PO DAILY, CAP Levothyroxine Sodium (Synthroid) 25 Mcg Tab 25 MCG PO DAILY Levothyroxine Sodium (Synthroid) 200 Mcg Tab 200 MCG PO DAILY Multivitamin (Multivitamin) Tab 1 TAB PO DAILY, TAB Admission HPI Per the Admitting provider: The patient is a 46 year old female who presents to the Emergency Room with complaints of persistent right-sided abdominal pain that started prior to arrival this evening. She says that she was just sitting down watching TV when the pain came on. She describes the pain as sharp, and goes from her right side across to her belly button. She adds that she has been vomiting tonight. The patient denies any back pain. She says that she still has her gallbladder. The patient denies any chance of . I saw pt at ER, I reviewed pt's H/P with pt, pt is still have RLQ pain, with nausea and vomiting, pt denies fever, no diarrhea. Hospital Course (1) Acute appendicitis Patient was taken to operating room for laparoscopic appendectomy possible open by Dr. Morrow. Patient was found to have acute appendicitis without perforation or abscess. Patient tolerated procedure well without any complications. Was transferred to recovery room and then to medical/surgical floor in stable condition. Post op orders included IV fluids, PO Percocet with breakthrough IV Dilaudid as needed for pain, clear liquid diet, activity as tolerated, IV Zofran as needed for nausea, and post op antibiotic ceftriaxone. ON POD #0 patient was evaluated. Vitals signs stable, afebrile, tolerating clear liquid diet, ambulating, urinating without difficulty, and pain controlled with oral pain medication. Diet was advanced as tolerated. Patient was discharged home in the afternoon on POD #0 in stable condition. Overall hospital course was uneventful. Discharge Instructions As given to patient Copies To Primary Care Provider: Pacheco Sullivan M.D..
== END 2017-03-31 13:30 | disposition home or self-care (01) ==
LOC: C.EDB 21:37 → C.MSN 03-31 02:12 → ENRESERV 03-31 02:20
PROVIDERS: ADMIT Surgery; ATTEND Surgery
DX: K35.80 Unspecified acute appendicitis (principal); E03.9 Hypothyroidism, unspecified

== ENCOUNTER → 2017-05-27 | Outpatient (CLI) | payer BC, OTHER ==
[~2017-05-27] MED LIST changes: +BIOT1CAP8 PO; +CHOL1000 PO; -ESCI1TAB9 PO; -IBUP-1050 PO; -LEVO125T8 PO; +LEVO25TA PO; +LXP/20 PO; +MULT-506 PO; +OMEG10007 PO; +ONDA4TAB10 SL; +OXYC-57 PO; +SYN200 PO
== END | disposition home or self-care (01) ==
LOC: C.LABBFT 09:06
PROVIDERS: ATTEND Internal Medicine
DX: Z13.6 Encounter for screening for cardiovascular disorders (principal); R53.83 Other fatigue; E55.9 Vitamin D deficiency, unspecified